=== PATIENT | female | born 1985 | race Caucasian/White ===

== ENCOUNTER 2019-05-10 13:15 | Inpatient (IN) | payer OTHER ==
[2019-05-10 14:37] VITALS: BMI 31.8
[2019-05-10] MEDS ORDERED: ELECTROLYTE-148 SOLN 1,000 ML IV SCH ×2 (15:00)
[2019-05-10] MEDS ORDERED: OXYTOCIN 20 UNITS in 0.9% NS 20 UNIT/1,000 ML INFUS.BAG IV ONE ×2 (15:18→20:21)
--- NOTE | 2019-05-10 15:50 | HP ---
Past Medical History - Admission Chief Complaint: In labor History of Present Illness: Term , second baby. GBS unknown. 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: Alzheimer's, CVA, Dementia, Migraine, Multiple Sclerosis, Peripheral Neuropathy, Parkinson's, Seizure, Syncope, TIA, Vertigo, Other Cardiovascular: No: AFIB, Aneurysm, Aortic Insufficiency, Aortic Stenosis, CAD, CHF, Deep Vein Thrombosis, HTN, Hyperlipdemia, IN, Mitral Insufficiency, Mitral Stenosis, Murmur, Pulmonary Hypertension, Other Pulmonary: No: Asthma, Bronchitis, Cancer, COPD, O2 Dependent, Pneumonia, Previously Intubated, Pulmonary Embolus, Pulmonary Fibrosis, Sleep Apnea, Other Gastrointestinal: No: Ascites, Cancer, Constipation, Crohn's Disease, Diverticulitis, Diverticulosis, Esophageal Varices, Gastritis, GERD, GI Bleed, Hemorrhoids, Hiatal Hernia, Inflamatory Bowel Disease, Irritable Bowel Disease, Pancreatitis, Peptic Ulcer Disease, Ulcerative Colitis, Other Hepatobiliary: No: Cirrhosis, Cholelithiasis, Cholecystitis, Choledoch olithiasis, Hepatitis A, Hepatitis B, Hepatitis C, Other Renal/: No: Renal Failure, Renal Inusuff, BPH, Cancer, Hematuria, Hemodialysis, Neurogenic Bladder, Renal Calculi, UTI, Other Reproductive: No: Ectopic , Endometriosis, Fibroids, PID, Polycystic Ovary Syndrome, Postmenopausal, Other ...: 3 ...Para: 1 ...Term: 1 ...Spon : 1 ...EDC by Fernando: 05/20/19 Infectious Disease: No: AIDS, C-Diff, Herpes Zoster, HIV, MRSA, STD's, Tuberculosis, VREF, Other Psych: No: Addictions, Anxiety, Bipolar, Depression, Panic, Psychosis, Schizophrenia, Other Musculoskeletal: No: Bursitis, Chronic low back pain, Hemiparesis, Hemiplegia, Osteoarthritis, Paraplegia, Other Rheumatology: No: Fibromyalgia, Gout, Lupus, Rheumatoid Arthritis, Sarcoidosis, Vasculitis, Other ENT: No: Allergic Rhinitis, Sinusitis, Other Endocrine: No: [place]'s Disease, Tobin's Disease, Diabetes Insipidus, Diabetes Mellitus, Hyperparathyroidism, Hyperthyroidism, Hypothyroidism, Osteopenia, SIADH, Other Dermatology: No: Basal Cell, Cellulitis, Eczema, Melanoma, Psoriasis, Squamous Cell, Other - Past Surgical History Past Surgical History: No: None, AAA Repair, AICD, Amputation, Appendectomy, Arthrosocopy, AV Fistula/Graft, Bariatric Surgery, Breast Biopsy, Bypass, CABG, Carotid Endarterectomy, Cataract Removal, Cholecystectomy, Colectomy, Colonoscopy, Colostomy, Craniotomy, , Cystectomy, Hernia Repair, Hysterectomy, Ileal Conduit, Ileosotomy, Joint Replacement, Kidney Transplant, Laminectomy, Liver Transplant, Mastectomy, Nephrectomy, Oopherectomy, Orchiectomy, Permanent Pacemaker, Prostatectomy, Splenectomy, Stent, Thoracotomy, TURP, Tonsillectomy, Tubal Ligation, Upper Endoscopy, Valve Replacement, Vasectomy, Vein Stripping/Ligation Hx Myomectomy: No Hx Transabdominal Cerclage: No - Smoking History Smoking history: Never smoked Have you smoked in the past 12 months: No - Alcohol/Substance Use Hx Alcohol Use: No Home Medications - Allergies Allergies/Adverse Reactions: Allergies Allergy/AdvReac Type Severity Reaction Status Date / Time No Known Allergies Allergy Verified 05/10/19 14:01 - Home Medications Home Medications: Ambulatory Orders Prenat 115/Iron Fum/Folic/Dss [ 19 Tablet] 1 tab PO DAILY 05/10/19 Review of Systems - Review of Systems Constitutional: reports: No Symptoms Eyes: reports: No Symptoms HENT: reports: No Symptoms Neck: reports: No Symptoms Cardiovascular: reports: No Symptoms Respiratory: reports: No Symptoms Gastrointestinal: reports: No Symptoms Genitourinary: reports: No Symptoms Breasts: reports: No Symptoms Reported Musculoskeletal: reports: No Symptoms Integumentary: reports: No Symptoms Neurological: reports: No Symptoms Endocrine: reports: No Symptoms Hematology/Lymphatic: reports: No Symptoms Psychiatric: reports: No Symptoms Physical Exam - Maternity Vital Signs: Vital Signs Temperature 98.9 F 05/10/19 13:15 Pulse Rate 101 H 05/10/19 13:15 Respiratory Rate 22 H 05/10/19 13:15 Blood Pressure 137/96 05/10/19 13:15 O2 Sat by Pulse Oximetry (%) Constitutional: Yes: Well Nourished, No Distress, Calm Eyes: Yes: WNL, Conjunctiva Clear, EOM Intact HENT: Yes: WNL, Atraumatic, Normocephalic Neck: Yes: WNL, Supple, Trachea Midline Cardiovascular: Yes: WNL, Regular Rate and Rhythm Breast(s): Yes: WNL - Abdominal Exam/OB Fundal Height: 38 Number of Fetuses: Single Presentation: Vertex Contractions: Yes Regularity: Regular Intensity: Mild/Mod Monitor Mode: External Heart Rate Location: [facility] Category: I Accelerations: Uniform Decelerations: None - Vaginal Exam/OB Vaginal Bleediing: No Speculum Exam: No Amniotic Membrane Status: Leaking Amniotic Fluid: Yes: Clear Presentation: Vertex/Position - Physical Exam Musculoskeletal: Yes: WNL Extremities: Yes: WNL Integumentary: Yes: WNL ...Motor Strength: WNL Psychiatric: Yes: WNL Problem List - Problems (1) 38 weeks gestation of Code(s): Z3A.38 - 38 WEEKS GESTATION OF (2) Active labor at term Code(s): BXI1399 - Assessment/Plan Term gestation in labor To deliver.
--- NOTE | 2019-05-10 15:52 | PN ---
Progress Note, Labor Vaginal Exam #1 Labor Exam Date: 05/10/19 Labor Exam Time: 15:15 Dilatation: 8 Effacement (%): 100 Amniotic Membrane Status: Leaking Presentation: Vertex/Position Station: 0 Vaginal Exam #2 Labor Exam Date: 05/10/19 Labor Exam Time: 15:20 Heart Rate (range): 134 Dilatation: 10 Effacement (%): 100 Presentation: Vertex/Position Station: +1 (OP start pushing.)
--- NOTE | 2019-05-10 15:54 | PN ---
Delivery - Delivery Type of Anesthesia: None Episiotomy/Laceration: None, Vaginal Extension/lac, 1st degree (minimal tear; repaired with 1 biosyn 3-0 suture.) Delivery, Single - Stages of Labor Date of Delivery: 05/10/19 Time of Delivery: 15:28 Placenta: Yes: Spontaneous, Normal Configuration - Condition of Position: Right, OA (given GBS prophylaxis) - Feeding Plan Initial Plan: Elected not to breastfeed exclusively throughout hospitalization
[2019-05-10] MEDS ORDERED: BISACODYL 10 MG SUPP.RECT RC PRN ×2 (15:56→15:59)
[2019-05-10] MEDS ORDERED: METHYLERGONOVINE MALEATE 0.2 MG/1 ML AMP IM PRN ×2 (15:56→15:59)
[2019-05-10] MEDS ORDERED: BENZOCAINE 28 GM HEMORRHOIDAL OINTMENT TP PRN (15:56)
[2019-05-10] MEDS ORDERED: ACETAMINOPHEN 325 MG TABLET (FP) PO PRN (15:56)
[2019-05-10] MEDS ORDERED: WITCH HAZEL 50% (TUCKS) 40 PAD/JAR PAD TP PRN ×2 (15:56→15:59)
[2019-05-10] MEDS ORDERED: BENZOCAINE 20% 57 GM BOTTLE TP PRN (15:56)
[2019-05-10] MEDS ORDERED: IBUPROFEN 600 MG TABLET (FP) PO PRN (15:56)
[2019-05-10] MEDS ORDERED: AMPICILLIN - 2 GM in SODIUM CHLORIDE 100 ML IVPB ONE (16:00)
[2019-05-10] MEDS ORDERED: OXYTOCIN 20 UNITS in 0.9% NS 20 UNIT/1,000 ML INFUS.BAG IV SCH (16:00)
[2019-05-10] MEDS ORDERED: PROMETHAZINE HCL 25 MG/1 ML VIAL IVPB ONE (16:35)
[2019-05-10] MEDS ORDERED: BUTORPHANOL TARTRATE 1 MG/ML VIAL IVPB ONE (16:35)
[2019-05-10] MEDS ORDERED: IBUPROFEN 600 MG TABLET (FP) PO ONE (17:13)
[2019-05-10] MEDS ORDERED: ACETAMINOPHEN 325 MG TABLET (FP) ONE (17:13)
[2019-05-10] MEDS: IBUPROFEN 600 MG TABLET (FP) PO PRN ×2 (17:15→23:24)
[2019-05-10] MEDS: ACETAMINOPHEN 325 MG TABLET (FP) PO PRN ×2 (17:15→23:24)
[2019-05-10 17:24] LABS: BASO % 0.3 % (0-2.0); EOS % 0.1 % (0-4.5); HEMOGLOBIN 10.7 GM/dL (10.7-15.3); LYMPH % 8.5 % (8-40); MCH 25.8 pg (25.7-33.7); MCHC 31.5 g/dl (32.0-36.0); MEAN CELL VOLUME 81.8 fl (80-96); MEAN PLT VOLUME 10.4 fl (7.5-11.1); MONO % 4.8 % (3.8-10.2); NEUT % 86.3 % (42.8-82.8); PLATELET COUNT 145 K/MM3 (134-434); RBC 4.16 M/mm3 (3.60-5.2); RDW 15.8 % (11.6-15.6); WHITE BLOOD COUNT 5.9 K/mm3 (4.0-10.0)
[2019-05-10 17:46] LABS: INR 0.92 (0.83-1.09); PROTHROMBIN TIME (PATIENT) 10.8 SEC (9.7-13.0)
[2019-05-10 17:49] LABS: ACTIVATED PTT 26.9 SECONDS (25.2-36.5); ALBUMIN 2.1 g/dl (3.4-5.0); BILIRUBIN,TOTAL 0.2 mg/dL (0.2-1); BLOOD UREA NITROGEN 7.8 mg/dL (7-18); CALCIUM 8.5 mg/dL (8.5-10.1); CREATININE 0.5 mg/dL (0.55-1.3); POTASSIUM 4.8 mmol/L (3.5-5.1); TOT PROT 5.6 g/dl (6.4-8.2)
[2019-05-10] MEDS ORDERED: oxyCODONE HCL 5 MG TABLET ONE (19:53)
[2019-05-10] MEDS: oxyCODONE HCL 5 MG TABLET PO PRN (19:57)
[2019-05-11] MEDS: IBUPROFEN 600 MG TABLET (FP) PO PRN ×4 (05:04→19:13)
[2019-05-11] MEDS: ACETAMINOPHEN 325 MG TABLET (FP) PO PRN ×3 (05:05→19:13)
[2019-05-11 08:11] LABS: BASO % 0.7 % (0-2.0); EOS % 0.9 % (0-4.5); HEMATOCRIT 24.3 % (32.4-45.2); HEMOGLOBIN 7.8 GM/dL (10.7-15.3); LYMPH % 29.4 % (8-40); MCH 26.1 pg (25.7-33.7); MCHC 32.2 g/dl (32.0-36.0); MEAN PLT VOLUME 10.2 fl (7.5-11.1); MONO % 13.2 % (3.8-10.2); NEUT % 55.8 % (42.8-82.8); PLATELET COUNT 114 K/MM3 (134-434); RDW 15.4 % (11.6-15.6); WHITE BLOOD COUNT 4.4 K/mm3 (4.0-10.0)
[2019-05-11] MEDS: oxyCODONE HCL 5 MG TABLET PO PRN (09:19)
[2019-05-11] MEDS: PRENATAL VITAMINS W/ FOLIC ACID TABLET (FP) PO SCH (09:20)
[2019-05-11 10:55] LABS: ANISOCYTOSIS 1+; MACROCYTOSIS 0; OVALOCYTE 1+; PLATELET ESTIMATE DECREASED
--- NOTE | 2019-05-11 13:21 | PN ---
Post Progress Note Post Day: 1 Type of Delivery: Vital Signs: Vital Signs Temperature 98.5 F 05/11/19 10:00 Pulse Rate 91 H 05/11/19 10:00 Respiratory Rate 20 05/11/19 10:00 Blood Pressure 116/67 05/11/19 10:00 O2 Sat by Pulse Oximetry (%) 99 05/10/19 17:00 Breast Exam: Yes: Soft Uterus: Yes: Fundus Firm, Non-tender Abdomen/GI: Yes: Abdomen soft Lochia: Yes: Rubra Lochia, amount: Small Extremities: Yes: Calves non-tender Perineum: Yes: Intact Activity: Ambulating - Labs Labs: CBC WBC 4.4 K/mm3 (4.0-10.0) 05/11/19 07:30 RBC 3.00 M/mm3 (3.60-5.2) L 05/11/19 07:30 Hgb 7.8 GM/dL (10.7-15.3) L 05/11/19 07:30 Hct 24.3 % (32.4-45.2) L D 05/11/19 07:30 MCV 81.0 fl (80-96) 05/11/19 07:30 MCH 26.1 pg (25.7-33.7) 05/11/19 07:30 MCHC 32.2 g/dl (32.0-36.0) 05/11/19 07:30 RDW 15.4 % (11.6-15.6) 05/11/19 07:30 Plt Count 114 K/MM3 (134-434) L D 05/11/19 07:30 MPV 10.2 fl (7.5-11.1) 05/11/19 07:30 Absolute Neuts (auto) 2.4 K/mm3 (1.5-8.0) 05/11/19 07:30 Neutrophils % 55.8 % (42.8-82.8) D 05/11/19 07:30 Neutrophils % (Manual) 50.0 % (42.8-82.8) 05/11/19 07:30 Band Neutrophils % 7.4 % 05/11/19 07:30 Lymphocytes % 29.4 % (8-40) D 05/11/19 07:30 Lymphocytes % (Manual) 28.7 % (8-40) 05/11/19 07:30 Monocytes % 13.2 % (3.8-10.2) H D 05/11/19 07:30 Monocytes % (Manual) 9 % (3.8-10.2) 05/11/19 07:30 Eosinophils % 0.9 % (0-4.5) D 05/11/19 07:30 Eosinophils % (Manual) 0.0 % (0-4.5) 05/11/19 07:30 Basophils % 0.7 % (0-2.0) 05/11/19 07:30 Basophils % (Manual) 0.0 % (0-2.0) 05/11/19 07:30 Myelocytes % (Man) 0 % (0-2) 05/11/19 07:30 Promyelocytes % (Man) 1 % (0-2) 05/11/19 07:30 Blast Cells % (Manual) 0 % (0-0) 05/11/19 07:30 Nucleated RBC % 0 % (0-0) 05/11/19 07:30 Metamyelocytes 2 % (0-2) 05/11/19 07:30 Hypochromia 2+ 05/11/19 07:30 Platelet Estimate Decreased 05/11/19 07:30 Polychromasia 1+ 05/11/19 07:30 Poikilocytosis 1+ 05/11/19 07:30 Anisocytosis 1+ 05/11/19 07:30 Microcytosis 1+ 05/11/19 07:30 Macrocytosis 0 05/11/19 07:30 Ovalocytes 1+ 05/11/19 07:30 Problem List - Problems (1) 38 weeks gestation of Code(s): Z3A.38 - 38 WEEKS GESTATION OF (2) Active labor at term Code(s): LKP2264 - (3) normal course Code(s): Z39.2 - ENCOUNTER FOR ROUTINE FOLLOW-UP Assessment/Plan Doing very well. VSS. Trying to nurse. Wants circumcision. PE OK. Uterus well contracted. Lochia WNL. No cva, extrem. T. I/P: Well. Happy. Good recovery. Nursing discussed, encouraged. Discharge tomorrow.
[2019-05-11] MEDS ORDERED: SENNOSIDES/DOCUSATE COMBO (SENNA PLUS) TABLET (UD) PO PRN ×2 (22:00)
--- NOTE | 2019-05-12 07:34 | PN ---
Post Progress Note Post Day: 2 Type of Delivery: Vital Signs: Vital Signs Temperature 97.7 F 05/11/19 21:37 Pulse Rate 97 H 05/11/19 21:37 Respiratory Rate 20 05/11/19 21:37 Blood Pressure 141/87 05/11/19 21:37 O2 Sat by Pulse Oximetry (%) 99 05/10/19 17:00 Breast Exam: Yes: Soft Uterus: Yes: Fundus Firm, Fundus below umbilicus Abdomen/GI: Yes: Abdomen soft, Passing flatus, Tolerating PO Lochia: Yes: Serosa Lochia, amount: Small Extremities: Yes: Calves non-tender Perineum: Yes: Episiotomy Activity: Ambulating (dc pt home today ) - Labs Labs: CBC WBC 4.4 K/mm3 (4.0-10.0) 05/11/19 07:30 RBC 3.00 M/mm3 (3.60-5.2) L 05/11/19 07:30 Hgb 7.8 GM/dL (10.7-15.3) L 05/11/19 07:30 Hct 24.3 % (32.4-45.2) L D 05/11/19 07:30 MCV 81.0 fl (80-96) 05/11/19 07:30 MCH 26.1 pg (25.7-33.7) 05/11/19 07:30 MCHC 32.2 g/dl (32.0-36.0) 05/11/19 07:30 RDW 15.4 % (11.6-15.6) 05/11/19 07:30 Plt Count 114 K/MM3 (134-434) L D 05/11/19 07:30 MPV 10.2 fl (7.5-11.1) 05/11/19 07:30 Absolute Neuts (auto) 2.4 K/mm3 (1.5-8.0) 05/11/19 07:30 Neutrophils % 55.8 % (42.8-82.8) D 05/11/19 07:30 Neutrophils % (Manual) 50.0 % (42.8-82.8) 05/11/19 07:30 Band Neutrophils % 7.4 % 05/11/19 07:30 Lymphocytes % 29.4 % (8-40) D 05/11/19 07:30 Lymphocytes % (Manual) 28.7 % (8-40) 05/11/19 07:30 Monocytes % 13.2 % (3.8-10.2) H D 05/11/19 07:30 Monocytes % (Manual) 9 % (3.8-10.2) 05/11/19 07:30 Eosinophils % 0.9 % (0-4.5) D 05/11/19 07:30 Eosinophils % (Manual) 0.0 % (0-4.5) 05/11/19 07:30 Basophils % 0.7 % (0-2.0) 05/11/19 07:30 Basophils % (Manual) 0.0 % (0-2.0) 05/11/19 07:30 Myelocytes % (Man) 0 % (0-2) 05/11/19 07:30 Promyelocytes % (Man) 1 % (0-2) 05/11/19 07:30 Blast Cells % (Manual) 0 % (0-0) 05/11/19 07:30 Nucleated RBC % 0 % (0-0) 05/11/19 07:30 Metamyelocytes 2 % (0-2) 05/11/19 07:30 Hypochromia 2+ 05/11/19 07:30 Platelet Estimate Decreased 05/11/19 07:30 Polychromasia 1+ 05/11/19 07:30 Poikilocytosis 1+ 05/11/19 07:30 Anisocytosis 1+ 05/11/19 07:30 Microcytosis 1+ 05/11/19 07:30 Macrocytosis 0 05/11/19 07:30 Ovalocytes 1+ 05/11/19 07:30
--- NOTE | 2019-05-12 07:36 | DS ---
Physical Exam-PRIVATE ADVISOR Vital Signs: Vital Signs Temperature 97.7 F 05/11/19 21:37 Pulse Rate 97 H 05/11/19 21:37 Respiratory Rate 20 05/11/19 21:37 Blood Pressure 141/87 05/11/19 21:37 O2 Sat by Pulse Oximetry (%) 99 05/10/19 17:00 Constitutional: Yes: Well Nourished, No Distress, Calm Eyes: Yes: WNL, Conjunctiva Clear, EOM Intact HENT: Yes: WNL, Atraumatic, Normocephalic Neck: Yes: WNL, Supple, Trachea Midline Cardiovascular: Yes: WNL, Regular Rate and Rhythm Respiratory: Yes: WNL, Regular, CTA Bilaterally Gastrointestinal: Yes: WNL, Normal Bowel Sounds, Soft ...Rectal Exam: Yes: WNL Renal/: Yes: WNL Pelvis: Yes: WNL External Genitalia: Yes: Normal Internal Exam Deferred: Yes Vaginal Exam: Yes: Normal Cervix: Yes: Normal Uterus: Yes: Normal Adnexa: Normal: Bilateral ....Post : Yes: Uterus firm, Uterus non-tender Breast(s): Yes: WNL Musculoskeletal: Yes: WNL Extremities: Yes: WNL Edema: Yes Edema: LUE: 1+, RUE: 1+, LLE: 1+, RLE: 1+ Integumentary: Yes: WNL Wound/Incision: Yes: Clean/Dry, Well Approximated Neurological: Yes: WNL, Alert, Oriented ...Motor Strength: WNL Psychiatric: Yes: WNL, Alert, Oriented Labs: CBC, BMP 05/11/19 07:30 05/10/19 16:30 Delivery - Delivery Type of Anesthesia: None Episiotomy/Laceration: 1st degree EBL (cc): 350 Delivery, Single - Stages of Labor Date 1st Stage Initiatied: 05/10/19 Time 1st Stage Initiated: 11:30 Date 2nd Stage Initiated: 05/10/19 Time 2nd Stage Initiated: 15:15 Date of Delivery: 05/10/19 Time of Delivery: 15:28 Time Placenta Delivered: 15:40 Placenta: Yes: Spontaneous, Normal Configuration - 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 Gender: Male Weight: 3.374 kg Position: Right, OA (given GBS prophylaxis) Total Hours ROM (Hrs/Mins): 1/20 - 1 Minute Total Score: 9 5 Minutes Total Score: 10 - [place] Feeding Plan Initial Plan: Elected not to breastfeed exclusively throughout hospitalization Discharge Summary Problems reviewed: Yes Reason For Visit: LABOR Current Active Problems 38 weeks gestation of (Acute) Active labor at term (Acute) normal course (Acute) Procedures: Principal: Other Procedures: uneventful Hospital Course: none Health Concerns: none Condition: Good - Instructions Diet, Activity, Other Instructions: Physical activity Resume your normal everyday activity as tolerated no heavy lifting or exercise until seen by your surgeon. You may walk unlimited amina of and climb stairs. You may resume driving the car when you feel safe and comfortable behind the wheel. No sexual activity as instructed. Wound care If you have a bandage, leave it on, and keep dry for 48-72 hours. After that time discard the outer bandage. If they are tapes on the skin under the out of bandage leave them in place. They will peel off in the next 7 to 10 days. Do Not Peel them off. You may shower the day after surgery. If there are tapes present on the skin, you may shower over them. Diet There are no dietary restrictions. Eat healthy, high-fiber foods. Drink 6 to 8 glasses of liquid each day. This will assist in keeping your bowels are regular. Pain management You may take Tylenol or acetaminophen or Ibuprofen (for example, Motrin, Advil etc.) from my pain prescription medication is ordered should be taken as prescribed for moderate to severe pain. Call MD for any of the following: see aleshia silver for 6 weeks appointment Severe pain not relieved by medication Fever of 101 or higher Excessive bleeding or drainage on dressing Inability to urinate Disposition: HOME - Home Medications Comprehensive Discharge Medication List: Ambulatory Orders Prenat 115/Iron Fum/Folic/Dss [ 19 Tablet] 1 tab PO DAILY 05/10/19 Prescription Drug Monitoring Program (I-STOP) results: I-STOP reviewed and no issues identified
[2019-05-12] MEDS: ACETAMINOPHEN 325 MG TABLET (FP) PO PRN (08:43)
[2019-05-12] MEDS: IBUPROFEN 600 MG TABLET (FP) PO PRN (08:44)
[2019-05-12] MEDS: PRENATAL VITAMINS W/ FOLIC ACID TABLET (FP) PO SCH (09:09)
[2019-05-12 10:08] VITALS: BP 138/76; PULSE 78; TEMP 97.9
--- NOTE | 2019-05-12 11:55 | PN ---
Progress Note (short form) - Note Progress Note: Pt. is doing well. Uterus firm. Mild edema. Discharge today. Instructions given. Problem List - Problems (1) 38 weeks gestation of Code(s): Z3A.38 - 38 WEEKS GESTATION OF (2) Active labor at term Code(s): OPG0263 - (3) normal course Code(s): Z39.2 - ENCOUNTER FOR ROUTINE FOLLOW-UP
== END 2019-05-12 12:20 | disposition home or self-care (01) | DRG 560 ==
LOC: JLDR 13:15 → J3W 20:57
PROVIDERS: ADMIT Specialist; ATTEND Specialist
PROC: 0HQ9XZZ Repair Perineum Skin, External Approach (ICD-10-PCS; principal; 2019-05-10)
PROC: 10E0XZZ Delivery of Products of Conception, External Approach (ICD-10-PCS; 2019-05-10)
DX: O70.0 First degree perineal laceration during delivery (principal); Z3A.38 38 weeks gestation of pregnancy; Z37.0 Single live birth
CPT/HCPCS: 36415; 59409; 80053; 85025; 85610; 85730; 86593; 86762; 86850; 86900; 86901; 87340; 87389